=== PATIENT | male | born 1990 | race Caucasian/White ===

== ENCOUNTER 2019-01-13 20:12 | Emergency (ER) | payer BC, MEDICAID ==
[~2019-01-13] VITALS: Ht 180.3 cm; Wt 98.0 kg
--- NOTE | 2019-01-13 20:29 | ED Upper Extremity ---
General Chief Complaint: Orthopedic Problems Stated Complaint: ELBOW PAIN Nursing Triage Note: was playing with roommate today and fell backwards hitting the wall, now has R elbow pain Nursing Sepsis Screen: No Definite Risk Source: patient, family Exam Limitations: no limitations History of Present Illness Date Seen by Provider: Jan 13, 2019 Time Seen by Provider: 20:28 Initial Comments To ER with reports of right elbow pain. He was roughhousing with a roommate fell backwards striking the right elbow. Has increased pain at the right elbow with extension of the wrist, unable to fully flex or extend the right arm at the elbow due to pain. No tingling in the fingers. 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 Onset: just prior to arrival Severity: moderate Pain/Injury Location: left elbow Method of Injury: fell Modifying Factors: Worse With Movement Allergies and Home Medications Patient Home Medication List Home Medication List Reviewed: Yes Review of Systems Constitutional: see HPI EENTM: see HPI Respiratory: no symptoms reported Cardiovascular: no symptoms reported Genitourinary: no symptoms reported Musculoskeletal: see HPI Skin: no symptoms reported Past Mjexgqm-Qvutba-Rbugzc Hx Patient Social History Alcohol Use: Denies Use Recreational Drug Use: No 2nd Hand Smoke Exposure: No Recent Foreign Travel: No Contact w/Someone Who Travel: No Recent Infectious Disease Expo: No Recent Hopitalizations: No Seasonal Allergies Seasonal Allergies: Yes Past Medical History Surgeries: No Respiratory: No Cardiac: No Neurological: Yes Seizure Disorder Genitourinary: No Gastrointestinal: No Musculoskeletal: No Endocrine: No HEENT: No Cancer: No Psychosocial: Yes Anxiety Integumentary: No Blood Disorders: No Physical Exam Vital Signs Vital Signs - First Documented 01/13/19 20:18 Pulse 116 Resp 18 B/P (MAP) 133/99 (110) Capillary Refill : Less Than 3 Seconds Height, Weight, BMI Height: 5'11.00" Weight: 216lbs. oz. 97.180983mf; BMI Method:Stated General Appearance: WD/WN, no apparent distress HEENT: PERRL/EOMI, normal ENT inspection Respiratory: no respiratory distress, no accessory muscle use Shoulder: normal inspection, non-tender Elbow/Forearm: normal inspection, Right, limited ROM, pain, soft tissue tenderness Wrist: Yes normal inspection, Yes non-tender Hand: normal inspection, non-tender Neurologic/Psychiatric: alert, normal mood/affect, oriented x 3 Skin: normal color, warm/dry Progress/Results/Core Measures Results/Orders My Orders Orders - OSCAR GONZALEZ APRN Shoulder, Right, 3 Views (01/13/19 20:26) Elbow, Right, 3 Views (01/13/19 20:44) Vital Signs/I&O 01/13/19 20:18 Pulse 116 Resp 18 B/P (MAP) 133/99 (110) Blood Pressure Mean: 110 Departure Impression Primary Impression: Radial head fracture Qualified Codes: S52.121A - Displaced fracture of head of right radius, initial encounter for closed fracture Disposition: HOME, SELF-CARE Condition: Stable Departure-Patient Inst. Decision time for Depature: 21:42 Referrals: LEON MELENDEZ DO (PCP/Family) Primary Care Physician Patient Instructions: Radius Fracture (DC) Add. Discharge Instructions: 1. Return to ER for any concerns 2. Leave the splint on at all times until you follow up with orthopedics. Call orthopedic surgeon of your choosing tomorrow to make an appointment to be seen within the next 2 weeks. All discharge instructions reviewed with patient and/or family. Voiced understanding. Scripts Hydrocodone/Acetaminophen ([place] 5-325 Tablet) 1 Each Tablet 1 TAB PO Q4-6HR for Pain MDD 10 TABS for 7 Days, #20 TAB Prov: OSCAR GONZALEZ APRN 01/13/19 OSCAR GONZALEZ APRN Jan 13, 2019 20:29
--- NOTE | 2019-01-13 20:56 | NUR ---
Recieved report from CATHY Gil to assume care of pt @ this time.
--- NOTE | 2019-01-13 20:57 | Diagnostic Imaging Report ---
INDICATION: Right shoulder injury COMPARISON: None FINDINGS: 3 views of the right shoulder demonstrate no fracture or dislocation. Articular surfaces are normal. No osseous lesion. IMPRESSION: Negative right shoulder Dictated by: Dictated on workstation # [id number]
--- NOTE | 2019-01-13 21:25 | Diagnostic Imaging Report ---
INDICATION: Right elbow injury COMPARISON: None FINDINGS: 3 views of the right elbow demonstrate minimally displaced radial head fracture with intra-articular involvement. There is a joint effusion. The proximal ulna and distal humerus are unremarkable. IMPRESSION: Slightly displaced radial head fracture with associated joint effusion. Dictated by: Dictated on workstation # [id number]
[2019-01-13] MEDS ORDERED: HYDR-4226 PO (21:45)
[2019-01-13] MEDS ORDERED: RX-HYDROCODONE/APAP 5/325 MG #4 TAB PK PO PRN (22:15)
[2019-01-13 22:21] VITALS: BP 133/99
== END 2019-01-13 22:21 | disposition home or self-care (01) ==
LOC: EDUNIT# 20:12 → ER 20:14
DX: S52.121A Displaced fracture of head of right radius, initial encounter for closed fracture (principal); G40.909 Epilepsy, unspecified, not intractable, without status epilepticus; F41.9 Anxiety disorder, unspecified; W01.198A Fall on same level from slipping, tripping and stumbling with subsequent striking against other object, initial encounter
CPT/HCPCS: 29105; 73030; 73080

== ENCOUNTER → 2019-06-11 | Outpatient (CLI) | payer MEDICAID ==
[~2019-06-11] MED LIST: HYDR-4226 PO
--- NOTE | 2019-06-11 09:33 | Diagnostic Imaging Report ---
INDICATION: Chronic cough. TIME OF EXAM: 9:00 AM No prior studies are available for comparison. FINDINGS: The heart size is normal. The pulmonary vascularity is unremarkable. The lungs are clear. No infiltrate, effusion or pneumothorax is detected. IMPRESSION: No acute cardiopulmonary process is detected. Dictated by: Dictated on workstation # [id number]
== END ==
LOC: RAD 08:43
PROVIDERS: ATTEND Family Medicine
DX: R05 Cough (principal)
CPT/HCPCS: 71046

== ENCOUNTER 2019-12-23 17:54 | Emergency (ER) | payer MEDICAID ==
[~2019-12-23] VITALS: Ht 180 cm; Wt 69.0 kg
--- NOTE | 2019-12-23 18:43 | NUR ---
PT INTIAL STROKE SCALE COMPLETED PT DOES HAVE SOME CHRONIC NEUROLOGICAL PROBLEMS
[2019-12-23 18:57] LABS: BASOPHILS % (AUTO) 0 % (0-10); EOSINOPHILS # (AUTO) 0.2 10^3/uL (0.0-0.3); EOSINOPHILS % (AUTO) 2 % (0-10); HEMATOCRIT 46 % (40-54); LYMPHOCYTES # (AUTO) 3.4 X 10^3 (1.0-4.0); LYMPHOCYTES % (AUTO) 33 % (12-44); MEAN CORPUSCULAR HEMOGLOBIN 32 PG (25-34); MEAN CORPUSCULAR HGB CONC 35 G/DL (32-36); MEAN CORPUSCULAR VOLUME 91 FL (80-99); MEAN PLATELET VOLUME 9.8 FL (7.4-10.4); MONOCYTES # (AUTO) 0.6 X 10^3 (0.0-1.0); MONOCYTES % (AUTO) 6 % (0-12); NEUTROPHILS # (AUTO) 5.9 X 10^3 (1.8-7.8); NEUTROPHILS % (AUTO) 59 % (42-75); PLATELET COUNT 377 10^3/uL (130-400); RED CELL DISTRIBUTION WIDTH 12.9 % (10.0-14.5); WHITE BLOOD COUNT 10.1 10^3/uL (4.3-11.0)
[2019-12-23 19:00] LABS: ALBUMIN 4.7 GM/DL (3.2-4.5); CHLORIDE 106 MMOL/L (98-107); POTASSIUM 3.8 MMOL/L (3.6-5.0); SODIUM 141 MMOL/L (135-145)
[2019-12-23 19:02] LABS: CALCIUM 9.3 MG/DL (8.5-10.1)
[2019-12-23 19:03] LABS: GLUCOSE 94 MG/DL (70-105)
[2019-12-23 19:04] LABS: CARBON DIOXIDE 22 MMOL/L (21-32)
--- NOTE | 2019-12-23 19:04 | ED Neurological Problem ---
General Chief Complaint: Neurological Problems Stated Complaint: DIZZINESS, Nursing Triage Note: PT TO ED 5 PER W/C, PT HAS CEREBRAL PALSY AND HX OF SEIZURES. PT STATES IS DIZZY AND HAS HAD DOUBLE VISION SINCE APPROX 1150. PT STATES ALSO HAS L EYE PAIN 9/10. DENIES SEIZURES FOR APPROX 3 YEARS. NO ABNORMAL WEAKNESS NOTED BY PT Nursing Sepsis Screen: No Definite Risk Source: patient, family Exam Limitations: no limitations History of Present Illness Date Seen by Provider: Dec 23, 2019 Time Seen by Provider: 18:33 Initial Comments Respiratory 29-year-old gentleman presents to the emergency room with complaints of headache since yesterday and diplopia since about 11:30. Patient has some chronic deficits, especially to the left upper extremity. He did not identify this as cerebral palsy but said they were present at . He states his speech is slurred today. It is unclear to what extent his speech is different than normal as it is reported he has some chronic slurring of speech. Patient also has weakness of dorsiflexion on the left foot which he states is new. Diplopia seems to be present with forward gaze and right-sided gaze. He denies any loss of field of vision. Vision is otherwise clear. He is alert and oriented at this time and denies drug or alcohol use. He has a history of sei zures and takes Keppra. No known seizures today. He has not had a seizure in 3 years. Patient denies any trauma. Patient is his own medical decision maker but is supported by his grandmother who is present with him. He is a client of [facility] [employer] and lives in a halfway. Allergies and Home Medications Allergies Coded Allergies: No Known Drug Allergies (Unverified , 01/13/19) Home Medications Hydrocodone/Acetaminophen 1 Each Tablet, 1 TAB PO Q4-6HR Prescribed by: OSCAR GONZALEZ on 01/13/19 9804 Patient Home Medication List Home Medication List Reviewed: Yes Review of Systems Review of Systems Constitutional: no symptoms reported Eyes: No Symptoms Reported Ears, Nose, Mouth, Throat: see HPI Respiratory: no symptoms reported Cardiovascular: no symptoms reported Gastrointestinal: no symptoms reported Genitourinary: no symptoms reported Musculoskeletal: no symptoms reported Skin: no symptoms reported Psychiatric/Neurological: See HPI Endocrine: No Symptoms Reported Hematologic/Lymphatic: No Symptoms Reported Past Sbjrdyr-Dzbxgg-Xkfjzq Hx Past Med/Social Hx: Reviewed Nursing Past Med/Soc Hx Patient Social History Alcohol Use: Occasionally Uses Recreational Drug Use: No Smoking Status: Never a Smoker 2nd Hand Smoke Exposure: No Recent Foreign Travel: No Contact w/Someone Who Travel: No Recent Infectious Disease Expo: No Recent Hopitalizations: No Physical Abuse: No Sexual Abuse: No Seasonal Allergies Seasonal Allergies: Yes Past Medical History Surgeries: No Respiratory: No Cardiac: No Neurological: Yes (chronic deficits L upper extremity weak, mild speech deficit) Seizure Disorder Genitourinary: No Gastrointestinal: No Musculoskeletal: No Endocrine: No HEENT: No Cancer: No Psychosocial: Yes Anxiety Integumentary: No Blood Disorders: No Physical Exam Vital Signs Vital Signs - First Documented 12/23/19 18:15 Temp 36.3 Pulse 86 Resp 14 B/P (MAP) 131/90 (104) Pulse Ox 95 Capillary Refill : Less Than 3 Seconds Height, Weight, BMI Height: 5'11.00" Weight: 216lbs. oz. 97.454067fs; 21.00 BMI Method:Stated General Appearance: WD/WN, no apparent distress HEENT: PERRL/EOMI, normal ENT inspection, TMs normal, other (saliva and mucus thick in the mouth. Hair and skin is dilated blue on the scalp) Neck: normal inspection Respiratory: lungs clear, normal breath sounds, no respiratory distress, no accessory muscle use Cardiovascular: regular rate, rhythm, no edema, no murmur Gastrointestinal: normal bowel sounds, non tender, soft Extremities: normal inspection, no pedal edema Neurologic/Psychiatric: alert, normal mood/affect, oriented x 3, abnormal cps team lead II-XII (slurred speech), aphasia (minimal when reading); No facial droop; motor weakness (chronic weakness and discoordination of the left upper extremity, slightly worse according to patient), other (diplopia with forward and rightward gaze) Crainal Nerves: normal hearing, PERRL, abnormal speech Coordination/Gait: normal gait, ABN nose to finger (L) (chronic and unchanged) Motor/Sensory: sensory deficit (chronic to left upper extremity and unchanged) Skin: normal color, warm/dry Stroke NIH Stroke Scale Assessment Level of Consciousness: 0=Alert (0), Level of Consciousness-Questions: 0=Answers both month/age (0), LOC Commands: 0=Performs both tasks (0), Visual Wen: 0=No visual loss (0), Facial Movement (Facial Paresis): 0=Normal symmetrical mnt (0), Motor Function-Arms Right: 0=No drift (0), Motor Function-Arms Left: 1=Drift (1), Motor Function-Legs Right: 0=No drift (0), Motor Function-Legs Left: 0=No drift (0), Limb Ataxia: 1=Present in one limb (1), Sensory: 0=Normal:no loss (0), Best Language: 1=Mild to moderat aphasia (1), Dysarthria: 1=Mild to moderate loss (1), Extinction & Inattention: 0=No abnormality (0), Total: 4 Progress/Results/Core Measures Results/Orders Lab Results Laboratory Tests Test 12/23/19 18:20 12/23/19 18:55 Range/Units White Blood Count 10.1 4.3-11.0 10^3/uL Red Blood Count 5.07 4.35-5.85 10^6/uL Hemoglobin 16.0 13.3-17.7 G/DL Hematocrit 46 40-54 % Mean Corpuscular Volume 91 80-99 FL Mean Corpuscular Hemoglobin 32 25-34 PG Mean Corpuscular Hemoglobin Concent 35 32-36 G/DL Red Cell Distribution Width 12.9 10.0-14.5 % Platelet Count 377 130-400 10^3/uL Mean Platelet Volume 9.8 7.4-10.4 FL Neutrophils (%) (Auto) 59 42-75 % Lymphocytes (%) (Auto) 33 12-44 % Monocytes (%) (Auto) 6 0-12 % Eosinophils (%) (Auto) 2 0-10 % Basophils (%) (Auto) 0 0-10 % Neutrophils # (Auto) 5.9 1.8-7.8 X 10^3 Lymphocytes # (Auto) 3.4 1.0-4.0 X 10^3 Monocytes # (Auto) 0.6 0.0-1.0 X 10^3 Eosinophils # (Auto) 0.2 0.0-0.3 10^3/uL Basophils # (Auto) 0.0 0.0-0.1 10^3/uL Prothrombin Time 13.5 12.2-14.7 SEC INR Comment 1.0 0.8-1.4 Activated Partial Thromboplast Time 32 24-35 SEC D-Dimer < 0.27 0.00-0.49 UG/ML Sodium Level 141 135-145 MMOL/L Potassium Level 3.8 3.6-5.0 MMOL/L Chloride Level 106 98-107 MMOL/L Carbon Dioxide Level 22 21-32 MMOL/L Anion Gap 13 5-14 MMOL/L Blood Urea Nitrogen 10 7-18 MG/DL Creatinine 0.86 0.60-1.30 MG/DL Estimat Glomerular Filtration Rate > 60 BUN/Creatinine Ratio 12 Glucose Level 94 70-105 MG/DL Calcium Level 9.3 8.5-10.1 MG/DL Corrected Calcium 8.5-10.1 MG/DL Total Bilirubin 0.5 0.1-1.0 MG/DL Aspartate Amino Transf (AST/SGOT) 39 H 5-34 U/L Alanine Aminotransferase (ALT/SGPT) 77 H 0-55 U/L Alkaline Phosphatase 54 40-136 U/L Troponin I < 0.028 <0.028 NG/ML Total Protein 8.0 6.4-8.2 GM/DL Albumin 4.7 H 3.2-4.5 GM/DL Serum Alcohol < 10 <10 MG/DL Urine Color YELLOW Urine Clarity CLEAR Urine pH 6.0 5-9 Urine Specific [place] 1.025 H 1.016-1.022 Urine Protein NEGATIVE NEGATIVE Urine Glucose (UA) NEGATIVE NEGATIVE Urine Ketones NEGATIVE NEGATIVE Urine Nitrite NEGATIVE NEGATIVE Urine Bilirubin NEGATIVE NEGATIVE Urine Urobilinogen 0.2 < = 1.0 MG/DL Urine Leukocyte Esterase NEGATIVE NEGATIVE Urine RBC (Auto) NEGATIVE NEGATIVE Urine RBC NONE /HPF Urine WBC NONE /HPF Urine Crystals NONE /LPF Urine Bacteria NEGATIVE /HPF Urine Casts NONE /LPF Urine Mucus MODERATE H /LPF Urine Culture Indicated NO Urine Opiates Screen NEGATIVE NEGATIVE Urine Oxycodone Screen NEGATIVE NEGATIVE Urine Methadone Screen NEGATIVE NEGATIVE Urine Propoxyphene Screen NEGATIVE NEGATIVE Urine Barbiturates Screen NEGATIVE NEGATIVE Ur Tricyclic Antidepressants Screen NEGATIVE NEGATIVE Urine Phencyclidine Screen NEGATIVE NEGATIVE Urine Amphetamines Screen NEGATIVE NEGATIVE Urine Methamphetamines Screen NEGATIVE NEGATIVE Urine Benzodiazepines Screen NEGATIVE NEGATIVE Urine Cocaine Screen NEGATIVE NEGATIVE Urine Cannabinoids Screen NEGATIVE NEGATIVE My Orders Orders - JOE SELF MD Cbc With Automated Diff (12/23/19 18:51) Protime With Inr (12/23/19 18:51) Partial Thromboplastin Time (12/23/19 18:51) Comprehensive Metabolic Panel (12/23/19 18:51) Fibrin Degradation Products (12/23/19 18:51) Troponin I (12/23/19 18:51) Ua Culture If Indicated (12/23/19 18:51) Chest 1 View, Ap/Pa Only (12/23/19 18:51) Ekg Tracing (12/23/19 18:51) Nothing By Mouth (12/23/19 Dinner) Accucheck Stat ONCE (12/23/19 18:51) Ed Iv/Invasive Line Start (12/23/19 18:51) Ed Iv/Invasive Line Start (12/23/19 18:51) Vital Signs Stroke Patient Q15M (12/23/19 18:51) Ct Head Wo-R/O Stroke (12/23/19 18:51) O2 (12/23/19 18:51) Intake & Output 06,14,22 (12/23/19 18:51) Monitor-Rhythm Ecg Trace Only (12/23/19 18:51) Dysphagia Screening Tool (12/23/19 18:51) Lipid Panel (12/24/19 06:00) Alcohol (12/23/19 18:51) Drug Screen Stat (Urine) (12/23/19 18:51) Vital Signs/I&O 12/23/19 18:15 Temp 36.3 Pulse 86 Resp 14 B/P (MAP) 131/90 (104) Pulse Ox 95 Blood Pressure Mean: 104 Progress Progress Note #1: Time: 19:13 Progress Note Stroke activation was paged. Patient is not a TPA candidate due to greater than 4.5 hours since last known well time. Progress Note #2: Time: 20:[address] of the head demonstrated possible hemorrhage near the right mid brain. I discussed the case with Dr. Huerta on the stroke neurologist at [facility]. He recommends transferring to the nearest neurosurgeon as the deficits could correlate with a bleed in this area. I spoke with Dr. Perez at [facility] at 19:[address] Inderjit Delatorre at 20:04. Both neurosurgeons recommend transferring to a comprehensive stroke center where endovascular and angiographic services are available. [facility] is on ICU diversion. Transfer is now pending to [facility]. Patient is stable at this time. He has no new neurologic deficits and vital signs are normal. Progress Note #3: Time: 22:08 Progress Note Patient remains stable and is now departing with [facility] to transfer to [facility]. He was instructed to take his usual oral Route with sips of water. Initial ECG Impression Date: Dec 23, 2019 Initial ECG Impression Time: 18:26 Initial ECG Rate: 78 Initial ECG Rhythm: Normal Sinus Initial ECG Intervals: Normal Initial ECG Impression: Normal Diagnostic Imaging Diagonstic Imaging: CT Plain Films/CT/US/NM/MRI: head Comments CT head viewed by me and report reviewed. See report below: NAME: DAVID GUTIERREZ MED REC#: [id number] PT STATUS: REG ER : 1990 PHYSICIAN: JOE SELF MD ADMIT DATE: 12/23/19/ER Draft Date of Exam:12/23/19 CT HEAD WO-R/O STROKE PROCEDURE: CT head without contrast. Rule out stroke. TECHNIQUE: Multiple contiguous axial images were obtained through the brain without the use of intravenous contrast. Auto Exposure Controls were utilized during the CT exam to meet ALARA standards for radiation dose reduction. INDICATION: Neuro deficit, visual disturbance and left weakness. COMPARISON: There is no previous study available at this time for comparison. FINDINGS: There is mild asymmetric prominence of right lateral ventricle. Otherwise, cerebral ventricles are unremarkable. There is an approximately 4.5 x 1.5 cm CSF density space anterior to the right frontal lobe inferiorly which could represent arachnoid cyst. Evaluation is somewhat limited due to rotation although there may be invagination of the right cerebral cortex near the central sulcus. There is an approximately 1.1 x 0.7 cm hyperdense focus to the right of the midbrain which may represent an area of acute hemorrhage. No other definite hemorrhage is identified. Calvarium is intact. Note is made of subcutaneous nodule in the right frontal scalp which could be related to sebaceous cyst. IMPRESSION: 1. Limited study due to positioning with possible focal acute hematoma to the right of midline at the level of the midbrain. This could be further assessed with MRI or short-term follow-up CT imaging. 2. There is probable right frontal arachnoid cyst. 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 Dictated on workstation # [id number] Dict: 12/23/191915 Trans: 12/23/191924 [facility] [id number] Interpreted by: WEN TREADWELL MD Diagonstic Imaging: Xray Plain Films/CT/US/NM/MRI: chest Comments NAME: DAVID GUTIERREZ MED REC#: [id number] PT STATUS: REG ER : 1990 PHYSICIAN: JOE SELF MD ADMIT DATE: 12/23/19/ER Draft Date of Exam:12/23/19 CHEST 1 VIEW, AP/PA ONLY INDICATION: Left weakness, visual disturbance and neuro deficit. Comparison is made to the study of 06/11/2019. FINDINGS: Heart size and pulmonary vascularity are within normal limits, and the lungs are clear, bilaterally. IMPRESSION: Unremarkable chest. Dictated on workstation # [id number] Dict: 12/23/191908 Trans: 12/23/191910 [facility] [id number] Interpreted by: WEN TERADWELL MD Reviewed: Reviewed by Me Departure Impression Primary Impression: Intracranial hemorrhage Additional Impressions: Diplopia Dysphasia Left-sided weakness Acute headache Qualified Codes: R51 - Headache Disposition: 02 XFER SHT-TRM HOSP Condition: Stable Transfer Transfer Reason: Exceeds level of care Time Spoke to Accepting Phy: 20:08 Transfer Progress Notes Transfer accepted by Dr. Bower, [facility]. Transfer Time: 22:08 Transfer Facility: [facility] Method of Transfer: EMS Departure-Patient Inst. Referrals: LEON MELENDEZ DO (PCP/Family) Primary Care Physician Copy Copies To 1: SHAMIR CONNER MD, JOSHUA T MD Dec 23, 2019 19:04
[2019-12-23 19:05] LABS: BILIRUBIN,TOTAL 0.5 MG/DL (0.1-1.0)
[2019-12-23 19:06] LABS: ALKALINE PHOSPHATASE 54 U/L (40-136)
[2019-12-23 19:07] LABS: BILIRUBIN,URINE NEGATIVE (NEGATIVE); CLARITY,URINE CLEAR; COLOR,URINE YELLOW; GLUCOSE, URINE (UA) NEGATIVE (NEGATIVE); KETONES,URINE NEGATIVE (NEGATIVE); LEUKOCYTE ESTERASE ,URINE NEGATIVE (NEGATIVE); NITRITE,URINE NEGATIVE (NEGATIVE); PROTEIN,URINE NEGATIVE (NEGATIVE)
[2019-12-23 19:07] LABS: CREATININE SERUM 0.86 MG/DL (0.60-1.30); GFR ESTIMATED > 60
[2019-12-23 19:08] LABS: BUN/CREATININE RATIO 12
[2019-12-23 19:09] LABS: ALANINE AMINOTRANSFERASE 77 U/L (0-55)
--- NOTE | 2019-12-23 19:11 | Diagnostic Imaging Report ---
INDICATION: Left weakness, visual disturbance and neuro deficit. Comparison is made to the study of 06/11/2019. FINDINGS: Heart size and pulmonary vascularity are within normal limits, and the lungs are clear, bilaterally. IMPRESSION: Unremarkable chest. Dictated by: Dictated on workstation # [id number]
[2019-12-23 19:15] LABS: BACTERIA,URINE NEGATIVE /HPF
[2019-12-23 19:22] LABS: FIBRIN DEGRADATION PRODUCTS < 0.27 UG/ML (0.00-0.49); PARTIAL THROMBOPLASTIN TIME 32 SEC (24-35); PROTHROMBIN TIME PATIENT 13.5 SEC (12.2-14.7)
[2019-12-23 19:22] LABS: AMPHETAMINE SCREEN, URINE NEGATIVE (NEGATIVE); BARBITURATE SCREEN URINE NEGATIVE (NEGATIVE); BENZODIAZEPINES SCREEN URINE NEGATIVE (NEGATIVE); CANNABINOID SCREEN, URINE NEGATIVE (NEGATIVE); COCAINE SCREEN URINE NEGATIVE (NEGATIVE); METHADONE STAT NEGATIVE (NEGATIVE); METHAMPHETAMINE SCREEN URINE S NEGATIVE (NEGATIVE); OPIATE SCREEN URINE NEGATIVE (NEGATIVE); OXYCODONE STAT NEGATIVE (NEGATIVE); PROPOXYPHENE STAT NEGATIVE (NEGATIVE); TRICYCLIC ANTIDEPRESSANTS SCRE NEGATIVE (NEGATIVE)
--- NOTE | 2019-12-23 19:25 | Diagnostic Imaging Report ---
PROCEDURE: CT head without contrast. Rule out stroke. TECHNIQUE: Multiple contiguous axial images were obtained through the brain without the use of intravenous contrast. Auto Exposure Controls were utilized during the CT exam to meet ALARA standards for radiation dose reduction. INDICATION: Neuro deficit, visual disturbance and left weakness. COMPARISON: There is no previous study available at this time for comparison. FINDINGS: There is mild asymmetric prominence of right lateral ventricle. Otherwise, cerebral ventricles are unremarkable. There is an approximately 4.5 x 1.5 cm CSF density space anterior to the right frontal lobe inferiorly which could represent arachnoid cyst. Evaluation is somewhat limited due to rotation although there may be invagination of the right cerebral cortex near the central sulcus. There is an approximately 1.1 x 0.7 cm hyperdense focus to the right of the midbrain which may represent an area of acute hemorrhage. No other definite hemorrhage is identified. Calvarium is intact. Note is made of subcutaneous nodule in the right frontal scalp which could be related to sebaceous cyst. IMPRESSION: 1. Limited study due to positioning with possible focal acute hematoma to the right of midline at the level of the midbrain. This could be further assessed with MRI or short-term follow-up CT imaging. 2. There is probable right frontal arachnoid cyst. 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 Dictated by: Dictated on workstation # [id number]
--- OUTSIDE RECORDS SUMMARY | 2019-12-23 20:08 | XMS REPORT | Continuity of Care Document ---
Author Organization Unknown Address Unknown Phone Unavailable Allergies Active Description Code Type Severity Reaction Onset Reported/Identified Relationship to Patient Clinical Status Yes NO KNOWN DRUG ALLERGIES UNKNOWN UNKNOWN Yes No Known Drug Allergies [id number] Drug Allergy Unknown N/A 01/13/2019 Medications There is no data. 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 08/03/2016 W 343.9 INFA NTILE CEREBRAL PALSY, UNSPECIFIED 08/03/2016 W 345.80 OTH ER FORMS OF EPILEPSY AND RECURRENT SEIZURES, WITHOUT MENTION OF INTRACTABLE EPILEPSY 08/03/2016 W G40.89 OTH ER SEIZURES 08/03/2016 W G80.9 CERE BRAL PALSY, UNSPECIFIED 02/07/2017 KAMERON CHAPIN MD Ot 345.10 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 02/18/2017 KAMERON CHAPIN MD Ot 345.10 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 05/15/2017 KAMERON CHAPIN MD Ot 345.10 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 07/18/2017 KAMERON CHAPIN MD Ot 345.10 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 09/11/2017 KAMERON CHAPIN MD Ot 345.10 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 01/13/2019 OSCAR GONZALEZ APRN Ot F41 .9 ANXIETY DISORDER, UNSPECIFIED 01/13/2019 OSCAR GONZALEZ APRN Ot G40.909 EPILEPSY, UNSP, NOT INTRACTABLE, WITHOUT 01/13/2019 GONZALEZ, PETER J DNA SEQUENCING ASSOCIATE Ot M25.521 PAIN IN RIGHT ELBOW 01/13/2019 OSCAR GONZALEZ DNA SEQUENCING ASSOCIATE Ot S52.121A DISP FX OF HEAD OF RIGHT RADIUS, INIT FO 01/13/2019 OSCAR GONZALEZ DNA SEQUENCING ASSOCIATE Ot W01.198A FALL SAME LEV FROM SLIP/TRIP W STRIKE AG 01/18/2019 OSCAR GONZALEZ DNA SEQUENCING ASSOCIATE Ot F41 .9 ANXIETY DISORDER, UNSPECIFIED 01/18/2019 OSCAR GONZALEZ DNA SEQUENCING ASSOCIATE Ot G40.909 EPILEPSY, UNSP, NOT INTRACTABLE, WITHOUT 01/18/2019 OSCAR GONZALEZ DNA SEQUENCING ASSOCIATE Ot M25.521 PAIN IN RIGHT ELBOW 01/18/2019 OSCAR GONZALEZ DNA SEQUENCING ASSOCIATE Ot S52.121A DISP FX OF HEAD OF RIGHT RADIUS, INIT FO 01/18/2019 OSCAR GONZALEZ APRN Ot W01.198A FALL SAME LEV FROM SLIP/TRIP W STRIKE AG 06/14/2019 SHAMIR CONNER MD Ot R0 5 COUGH 06/24/2019 SHAMIR CONNER MD Ot R0 5 COUGH Procedures Code [place] [address] TB T EST INTRADERMAL 10/14/2012 Results There is no data. Encounters ACCT No. Visit Date/Time Discharge Status Pt. Type Provider Facility Loc./Unit Complaint [id number] 02/22/2014 13:59:00 02/22/2014 23:59: 59 CLS Outpatient LOIS DESHPANED DDS [id number] 10/14/2012 15:57:00 Document Registration [id number] 06/11/2019 08:43:00 020 23:59:59 CLS Outpatient SHAMIR CONNER MD [facility] RAD CHRONIC COUGH [id number] 01/13/2019 20:14:00 019 22:21:00 DIS Emergency OSCAR GONZALEZ APRN [facility] ER ELBOW PAIN [id number] 10/30/2012 11:45:00 013 23:59:59 CLS Outpatient KAMERON CHAPIN MD [facility] RT EPILEPSY [id number] 11/04/2019 09:03:00 11/04/2019 23:59 :00 DIS Outpatient KAMERON CHAPIN [id number] 06/08/2019 12:49:00 06/08/2019 23:59 :00 DIS Outpatient SHAMIR CONNER [id number] 05/06/2019 09:36:00 05/06/2019 23:59 :00 DIS Outpatient KAMERON CHAPIN [id number] 11/05/2018 09:00:00 11/05/2018 23:59: 00 DIS Outpatient KAMERON CHAPIN [id number] 05/07/2018 08:36:00 05/07/2018 23:59: 00 DIS Outpatient KAMERON CHAPIN [id number] 11/13/2017 09:01:00 11/13/2017 23:59: 00 DIS Outpatient KAMERON CHAPIN [id number] 08/03/2016 10:26:00 Document Registration
--- OUTSIDE RECORDS SUMMARY | 2019-12-23 20:08 | XMS REPORT ---
Author Author Ericka Tran Doctor Organization [facility] Address Unknown Phone Unavailable Care Team Providers Care Chief Scientific Officer Name Role Phone Migration, Doctor Unavailable Unavailable PROBLEMS Type Condition ICD9-CM Code OXF64-CG Code Onset Dates Condition S tatus SNOMED Code Problem Screening examination for pulmonary tuberculosis V74.1 Active 502313632 Problem Need for prophylactic vaccination and inoculation, Influen za V04.81 Active 143035092 ALLERGIES No Information ENCOUNTERS Encounter Location Date Diagnosis OUTREACH [facility] [address] [facility] [id number] [address] Nov, Oral health maintenance stat us requiring routine preventive dental care K08.9 [facility] [place] [id number] [place] [address] Jul, Oral health maintenance status requiring routine preventive dental care K08.9 and Dental examination Z01.20 [facility] [id number] [place] [address] [phone] Mar, Encounter for dental examina tion and cleaning without abnormal findings Z01.20 and Encounter for prophylactic administration of fluoride Z29.3 [facility] [address] [facility] [id number] [address] [place] [address] [phone] Dec, Dental examination Z01.20 [facility] [address] [id number] [address] [place] [address] [phone] Aug, Dental examination Z01.20 [facility] [address] [facility] [id number] [address] [place] [address] [phone] May, Encounter for dental exam an d cleaning w/o abnormal findings Z01.20 [facility] [address] [id number] [address] [place] [address] [phone] May, Dental examination Z01.20 [facility] [id number] [place] [address] [phone] Jan, Encounter for dental examina tion and cleaning without abnormal findings Z01.20 [facility] [id number] [phone] Dec, Encounter for dental examination Z01.20 [facility] [address] [id number] [address] [place] [phone] Oct, Encounter for dental examina tion and cleaning without abnormal findings Z01.20 [facility] [id number] [phone] Oct, Dental examination Z01.20 [facility] [address] [id number] [address] [place] [address] [id number] Jul, Encounter for dental examina tion and cleaning without abnormal findings Z01.20 [facility] [id number] [phone] Jun, Dental examination Z01.20 [facility] [address] [id number] [address] [place] [address] [phone] Apr, Encounter for dental examina tion and cleaning without abnormal findings Z01.20 [facility] [id number] [phone] Apr, Dental examination Z01.20 [facility] [address] [id number] [address] [place] [address] [phone] Dec, Encounter for dental examina tion and cleaning without abnormal findings Z01.20 [facility] [id number][place] [phone] Aug, Dental examination Z01.20 [facility] [address] [id number] [address] [place] [address] [phone] Aug, Encounter for dental examina tion and cleaning with abnormal findings Z01.21 [facility] [address] [id number] [address] [place] [address] [phone] Apr, Encounter for dental examina tion Z01.20 [facility] [address] [id number] [address] [place] [address] [phone] Oct, Dental examination V72.2 [facility] [address] [facility] [id number] [address] [place] [phone] Mar, [facility] [address] [facility] [id number] [address] [place] [phone] Mar, [facility] [address] [facility] [id number] [address] [place] [phone] Mar, [facility] [address] [facility] [id number] [address] [place] [phone] Mar, [facility] [address] [facility] [id number] [address] [place] [phone] September, [facility] [address] [facility] [id number] [address] [place] [phone] September, IMMUNIZATIONS No Known Immunizations SOCIAL HISTORY Never Assessed REASON FOR VISIT PLAN OF CARE VITAL SIGNS MEDICATIONS Unknown Medications RESULTS No Results PROCEDURES No Known procedures INSTRUCTIONS MEDICATIONS ADMINISTERED No Known Medications MEDICAL (GENERAL) HISTORY Type Description Date Medical History Epilepsy Medical History I/DD Medical History Cerebral Palsy Surgical History No Surgical history information
--- OUTSIDE RECORDS SUMMARY | 2019-12-23 20:08 | XMS REPORT ---
Author Author Ericka YEE Organization [facility] Address [address] [place] [address] Care Team Providers Care Veterans' Counselor Name Role Phone BAKARI YEE Unavailable PROBLEMS Type Condition ICD9-CM Code UIA17-VH Code Onset Dates Condition S tatus SNOMED Code Problem Screening examination for pulmonary tuberculosis V74.1 Active 515562018 Problem Need for prophylactic vaccination and inoculation, Influen za V04.81 Active 169570914 ALLERGIES Substance Reaction Event Type Date Status seasonal allergies Unknown Non Drug Allergy Jul, Activ e ENCOUNTERS Encounter Location Date Diagnosis OUTREACH [facility] [address] [id number] [address] 17 Jun, 2019 Oral health maintenance stat us requiring routine preventive dental care K08.9 OUTREACH [facility] [address] [address] [id number], [place] [address] Mar, Dental examination Z01.20 an d Oral health maintenance status requiring routine preventive dental care K08.9 OUTREACH [facility] [id number] [place] [phone] Nov, Oral health maintenance stat us requiring routine preventive dental care K08.9 [facility] [id number] [place] [phone] Jul, Oral health maintenance status requiring routine preventive dental care K08.9 and Dental examination Z01.20 [facility] [address] [id number] [address] [place] [address] [phone] Mar, Encounter for dental examina tion and cleaning without abnormal findings Z01.20 and Encounter for prophylactic administration of fluoride Z29.3 [facility] [address] [id number] [address] [place] [address] [phone] Dec, Dental examination Z01.20 [facility] [address] [id number] [address] [place] [address] [phone] Aug, Dental examination Z01.20 [facility] [address] [id number] [address] [place] [address] [phone] May, Encounter for dental exam an d cleaning w/o abnormal findings Z01.20 [facility] [address] [id number] [address] [place] [address] [phone] May, Dental examination Z01.20 [facility] [address] [id number] [address] [place] [address] [phone] Jan, Encounter for dental examina tion and cleaning without abnormal findings Z01.20 [facility] [address] [id number] [phone] Dec, Encounter for dental examination Z01.20 [facility] [address] [id number] [address] [place] [address] [phone] Oct, Encounter for dental examina tion and cleaning without abnormal findings Z01.20 [facility] [address] [id number] [id number] Oct, Dental examination Z01.20 [facility] [address] [id number] [address] [place] [address] [phone] Jul, Encounter for dental examina tion and cleaning without abnormal findings Z01.20 [facility] [address] [id number] [phone] Jun, Dental examination Z01.20 [facility] [address] [id number] [address] [place] [address] [phone] Apr, Encounter for dental examina tion and cleaning without abnormal findings Z01.20 [facility] [address] [id number] [phone] Apr, Dental examination Z01.20 [facility] [address] [id number] [address] [place] [address] [phone] Dec, Encounter for dental examina tion and cleaning without abnormal findings Z01.20 [facility] [id number] [facility] [id number] [place] [phone] Aug, Dental examination Z01.20 [facility] [address] [id number] [address] [place] [address] [phone] Aug, Encounter for dental examina tion and cleaning with abnormal findings Z01.21 [facility] [address] [id number] [address] [place] [address] [phone] Apr, Encounter for dental examina tion Z01.20 [facility] [address] [id number] [address] [place] [address] [phone] Oct, Dental examination V72.2 [facility] [address] [id number] [address] [place] [phone] Mar, [facility] [address] [facility] [id number] [address] [place] [phone] Mar, [facility] [address] [facility] [id number] [address] [place] [phone] Mar, [facility] [address] [id number] [address] [place] [phone] Mar, [facility] [address] [facility] [id number] [address] [place] [phone] September, [facility] [address] [facility] [id number] [address] [place] [phone] September, IMMUNIZATIONS No Known Immunizations SOCIAL HISTORY Never Assessed REASON FOR VISIT PLAN OF CARE Activity Details Follow Up prn Reason:6 mo recall VITAL SIGNS MEDICATIONS Medication Instructions Dosage Frequency Start Date End Date Duration S tatus Multivitamin Adults - as directed Active Lorazepam 0.5 MG Orally every 6 hrs 1 tablet as needed 6h Active Mapap 325 MG Orally every 6 hrs 2 tablets as needed 6h Not-Taking Ibuprofen 600 MG Orally Three times a day 1 tablet 8h Active Co Q 10 100 MG Orally Once a day 1 capsule with a meal 24h Active Levetiracetam 500 MG Orally every 12 hrs 1 tablet 12h Active Loratadine 10 MG Orally Once a day 1 tablet 24h 30 d ay(s) Active Keppra 500 MG Not-Taking Promethazine VC/Codeine Not-Taking Ocuvite - Not-Taking Topamax Not-Taking Ativan 1 MG Orally Once a day 1 tablet at bedtime as needed 24h Not-Taking Claritin 10 MG Orally Once a day 1 tablet 24h Not-Taking Acetaminophen Active RESULTS No Results PROCEDURES Procedure Date Ordered Result Body Site TOPICAL FLUORIDE VARNISH August 12, 2018 PROPHYLAXIS - ADULT August 12, 2018 BITEWINGS - FOUR FILMS August 12, 2018 PERIODIC ORAL EXAMINATION August 12, 2018 INSTRUCTIONS MEDICATIONS ADMINISTERED No Known Medications MEDICAL (GENERAL) HISTORY Type Description Date Medical History Epilepsy Medical History I/DD Medical History Cerebral Palsy Surgical History No Surgical history information
--- NOTE | 2019-12-23 21:12 | NUR ---
Dispatch and captain contacted at this time.
[2019-12-23 22:00] VITALS: BP 122/58
[2019-12-23 22:08] VITALS: BP 122/68
== END 2019-12-23 22:12 | disposition short-term general hospital (02) ==
LOC: EDUNIT# 17:54 → ER 17:56
DX: I62.9 Nontraumatic intracranial hemorrhage, unspecified (principal); R47.02 Dysphasia; G81.94 Hemiplegia, unspecified affecting left nondominant side; H53.2 Diplopia; R51 Headache; G40.909 Epilepsy, unspecified, not intractable, without status epilepticus
CPT/HCPCS: 70450; 71045; 80053; 80306; 81000; 84484; 85025; 85379; 85610; 85730; 93041; G0480; 36415; 80320; 93005; 99291

== ENCOUNTER → 2020-02-18 | Outpatient (CLI) | payer MEDICAID ==
--- NOTE | 2020-02-18 11:01 | Diagnostic Imaging Report ---
EXAM: Modified barium swallow INDICATION: Difficulty swallowing. FINDINGS: This study was performed in the presence of the speech pathologist, Jie English The patient was given barium in several different substances to swallow. This included honey, nectar, thin barium, barium on a cracker, barium in banana and barium in ground beef. The patient was able swallow the materials without difficulty. There was no aspiration or penetration. IMPRESSION: The swallowing mechanism is within normal limits. There is no evidence for aspiration or penetration. Dictated by: Dictated on workstation # [id number]
== END ==
LOC: RAD 10:00
PROVIDERS: ATTEND Family Medicine
DX: K11.7 Disturbances of salivary secretion (principal); R13.10 Dysphagia, unspecified
CPT/HCPCS: 74230

== ENCOUNTER 2022-11-21 07:38 | Emergency (ER) | payer MEDICAID ==
[~2022-11-21] VITALS: Ht 180.3 cm; Wt 69.0 kg
--- NOTE | 2022-11-21 08:23 | ED General ---
General Chief Complaint: General Problems/Pain Stated Complaint: TOOK WRONG MEDICATION Nursing Triage Note: CAROLYNE WAS GIVE SOMEONE ELSES MEDICATIONS BY "CLASS" STAFF THIS AM AROUND 0645. Source of Information: Patient Exam Limitations: No Limitations History of Present Illness Date Seen by Provider: Nov 21, 2022 Time Seen by Provider: 07:50 Initial Comments This 32-year-old gentleman presents to the emergency room after accidentally re ceiving the wrong morning medications. He receives in-home assistance with medication management and received the medications intended for another patient. He did not receive his own medications. He has no physical complaints at this time and feels normal. Time of ingestion was around 0645. Medications he received this morning include: Methylphenidate CD40 mg Vraylar 1.5 mg Clonazepam 0.5 mg Trileptal 450 mg Guanfacine 1 mg He usually takes Keppra 500 mg twice daily which she did not receive this mor praneeth. His other usual medications were reviewed and are not critical at this time. He will receive Keppra 500 mg here in the ER. Allergies and Home Medications Allergies Coded Allergies: No Known Drug Allergies (Unverified , 01/13/19) Patient Home Medication List Home Medication List Reviewed: Yes Hydrocodone/Acetaminophen (Hydrocodone/Acetaminophen 5 MG/325 MG TAB) 1 Each Tablet, 1 TAB PO Q4-6HR Prescribed by: OSCAR GONZALEZ on 01/13/192144 Review of Systems Review of Systems Constitutional: no symptoms reported EENTM: no symptoms reported Respiratory: no symptoms reported Cardiovascular: no symptoms reported Gastrointestinal: no symptoms reported Genitourinary: no symptoms reported Musculoskeletal: no symptoms reported Skin: no symptoms reported Psychiatric/Neurological: No Symptoms Reported Hematologic/Lymphatic: No Symptoms Reported Immunological/Allergic: no symptoms reported Past Udrduco-Kleqtn-Jhumcy Hx Patient Social History Tobacco Use?: No Use of E-Cig and/or Vaping dev: No Substance use?: No Alcohol Use?: No Pt feels they are or have been: No Immunizations Up To Date Influenza Vaccine Up-to-Date: Yes; Up-to-Date First/Initial COVID19 Vaccinat: "3 shots" Seasonal Allergies Seasonal Allergies: Yes Past Medical History Surgery/Hospitalization HX: SEIZURES, "BRAIN BLEED" DENIES SURGICAL HX Surgeries: No Respiratory: No Cardiac: No Neurological: Yes (chronic deficits L upper extremity weak, mild speech d eficit) Seizure Disorder, Stroke (Spontaneous intracranial hemorrhage 2019) Genitourinary: No Gastrointestinal: No Musculoskeletal: No Endocrine: No HEENT: No Cancer: No Psychosocial: Yes Anxiety Integumentary: No Blood Disorders: No Physical Exam Vital Signs Vital Signs - First Documented 11/21/22 07:45 Temp 37.1 Pulse 86 Resp 16 B/P (MAP) 142/99 (113) Pulse Ox 97 O2 Delivery Room Air Capillary Refill : Less Than 3 Seconds Height, Weight, BMI Height: 5'11.00" Weight: 216lbs. oz. 97.409589tp; 21.00 BMI Method:Stated General Appearance: No Apparent Distress, WD/WN HEENT: Normal ENT Inspection Neck: Normal Inspection Respiratory: Lungs Clear, Normal Breath Sounds, No Accessory Muscle Use Cardiovascular: Regular Rate, Rhythm, No Edema, No Murmur Gastrointestinal: Normal Bowel Sounds, Soft Extremity: Normal Inspection Neurologic/Psychiatric: Alert, Oriented x3, Normal Mood/Affect Skin: Normal Color, Warm/Dry Progress/Results/Core Measures Suspected Sepsis SIRS Temperature: Pulse: 86 Respiratory Rate: 16 Blood Pressure 142 /99 Mean: 113 Results/Orders My Orders Orders - JOE SELF MD Levetiracetam Tablet (Keppra Tablet) (11/21/22 08:00) Medications Given in ED Current Medications Medications Dose Ordered Sig/Osiel Route Start Time Stop Time Status Last Admin Dose Admin Levetiracetam 500 mg ONCE ONCE PO 11/21/22 08:00 11/21/22 08:01 DC 11/21/22 08:11 500 MG Vital Signs/I&O 11/21/22 11/21/22 07:45 11:07 Temp 37.1 Pulse 86 101 Resp 16 18 B/P (MAP) 142/99 (113) 126/97 Pulse Ox 97 98 O2 Delivery Room Air Capillary Refill : Less Than 3 Seconds Blood Pressure Mean: 113 Progress Note #1: Progress Note Patient was interviewed and examined. Medications were reviewed. He received his usual dose of Keppra 500 mg ordered in the ER. Medications he received were reviewed. I do not anticipate any serious adverse effect from these medications, but we will monitor him for a few hours to ensure he remains stable. Patient has no complaints at this time and expresses no needs. Vital signs will be monitored with blood pressure checks every 15 minutes. He is mildly hypertensive at this time and we will watch his blood pressure closely. Progress Note #2: Progress Note Vital signs remained stable and patient had no adverse effects from the accidental medication ingestion. He was discharged home in stable condition with return precautions. See discharge instructions for further discussion. Departure Impression Primary Impression: Accidental drug ingestion Qualified Codes: T50.901A - Poisoning by unspecified drugs, medicaments and biological substances, accidental (unintentional), initial encounter Disposition: HOME, SELF-CARE Condition: Stable Departure-Patient Inst. Decision time for Depature: 08:32 Referrals: BERNARDINO ANDERSON MD (PCP/Family) Primary Care Physician Patient Instructions: NO INSTRUCTIONS GIVEN Add. Discharge Instructions: Return to the emergency room if you notice any symptoms such as excessive drowsiness, lightheadedness, agitation, nausea, vomiting, racing heart, etc. Otherwise resume your usual medications this evening. Call with any questions or concerns. All discharge instructions reviewed with patient and/or family. Voiced underst anding. Copy Copies To 1: BERNARDINO ANDERSON MD, JOSHUA T MD Nov 21, 2022 08:23
[2022-11-21 11:07] VITALS: BP 126/97
== END 2022-11-21 11:06 | disposition home or self-care (01) ==
LOC: EDUNIT# 07:38 → ER 07:40
DX: T43.631A Poisoning by methylphenidate, accidental (unintentional), initial encounter (principal); T42.1X1A Poisoning by iminostilbenes, accidental (unintentional), initial encounter; T46.5X1A Poisoning by other antihypertensive drugs, accidental (unintentional), initial encounter; R03.0 Elevated blood-pressure reading, without diagnosis of hypertension; Z28.311 Partially vaccinated for COVID-19
CPT/HCPCS: 99281